=== PATIENT | female | born 1955 | race Two or more races ===

== ENCOUNTER 2017-08-17 19:21 | Emergency (ER) | payer MEDICAID ==
[~2017-08-17] VITALS: Ht 152.4 cm; Wt 65.3 kg
[2017-08-17 19:39] VITALS: BP 148/69
[2017-08-17] MEDS ORDERED: KETOROLAC TROMETH 30 MG/ML 1ML VIAL IM ONE (21:30)
== END 2017-08-18 00:35 | disposition home or self-care (01) ==
LOC: ER 19:21
DX: S62.347A Nondisplaced fracture of base of fifth metacarpal bone, left hand, initial encounter for closed fracture (principal); S00.531A Contusion of lip, initial encounter; I10 Essential (primary) hypertension; W01.0XXA Fall on same level from slipping, tripping and stumbling without subsequent striking against object, initial encounter; Y93.89 Activity, other specified; Y99.8 Other external cause status; Y92.89 Other specified places as the place of occurrence of the external cause
CPT/HCPCS: 29125; 70486; 73110; 73130; 96372; 99284; J1885